=== PATIENT | male | born 1985 | race Caucasian/White ===

== ENCOUNTER 2017-10-14 13:08 | Emergency (ER) | payer SELFPAY ==
[2017-10-14 13:21] VITALS: BP 101/57; PULSE 92; RESP 18; TEMP 98; O2SAT 100
--- NOTE | 2017-10-14 14:31 | ED PDOC ---
Lower Extremity Pain/Injury Time Seen by Provider: 10/14/17 13:22 Chief Complaint (Nursing): Lower Extremity Problem/Injury Chief Complaint (Provider): Lower Extremity Injury History Per: Patient History/Exam Limitations: no limitations Onset/Duration Of Symptoms: Mins ([employer]) Current Symptoms Are (Timing): Better Additional Complaint(s): 32 year old male presents to ED with complaints of a left knee injury and has no relevant past medical history. States that his left knee was displaced laterally while moving furniture. Denies hitting anything against his knee or having a history of prior knee injuries. Denies radiation of pain up his left leg. Patient states he sat down on the EMS stretcher and the knee went back in place by itself. PCP: Non [facility] - Knee Description Of Injury: Other (Dislocated left knee) Past Medical History Reviewed: Historical Data, Nursing Documentation, Vital Signs Vital Signs: Last Vital Signs Temp 98 F 10/14/17 13:17 Pulse 92 H 10/14/17 13:17 Resp 18 10/14/17 13:17 BP 101/57 L 10/14/17 13:17 Pulse Ox 100 10/14/17 13:17 - Medical History PMH: No Chronic Diseases - Family History Family History: States: No Known Family Hx - Living Arrangements Living Arrangements: With Family - Home Medications Home Medications: Ambulatory Orders Medication Instructions Recorded Naproxen [Naprosyn] 500 mg PO BID PRN #10 tab 10/14/17 - Allergies Allergies/Adverse Reactions: Allergies Allergy/AdvReac Type Severity Reaction Status Date / Time No Known Allergies Allergy Verified 10/14/17 13:20 Wells Criteria for PE - Wells Criteria for Pulmonary Embolism Clinical Signs and Symptoms of DVT: No P.E is #1 Diagnosis, or Equally Likely: No Heart Rate >100: No Immobilization at least 3 days;Surgery previous 4 weeks: No Previous, objectively diagnosed PE or DVT: No Hemoptysis: No Total Score: 0 Review of Systems ROS Statement: Except As Marked, All Systems Reviewed And Found Negative Musculoskeletal: Positive for: Leg Pain (left knee pain) Physical Exam - Reviewed Nursing Documentation Reviewed: Yes Vital Signs Reviewed: Yes - Physical Exam Appears: Positive for: Non-toxic, No Acute Distress Skin: Positive for: Normal Color, Warm, Dry Respiratory: Negative for: Respiratory Distress Pulses-Dorsalis Pedis (L): 2+ Pulses-Dorsalis Pedis (R): 2+ Extremity: Positive for: Tenderness (mild tenderness to left knee). Negative for: Deformity, Other ((-) joint laxity) Neurologic/Psych: Positive for: Alert, Oriented. Negative for: Motor/Sensory Deficits - ECG O2 Sat by Pulse Oximetry: 100 (RA) Pulse Ox Interpretation: Normal - Radiology X-Ray: Interpreted by Me (L knee xray) X-Ray Interpretation: No Acute Disease - Progress ED Course And Treament: Knee immobilized in orozco dressing with immobilizer. Crutches provided. Medical Decision Making Medical Decision Makin Initial impression: knee injury Initial plan: * XR KNEE LEFT * Toradol 30mg IM * Re-eval Scribe Attestation: Documented by Carolyn Matos, acting as a scribe for Erasto Sim PA-C. Provider Scribe Attestation: All medical record entries made by the Scribe were at my direction and personally dictated by me. I have reviewed the chart and agree that the record accurately reflects my personal performance of the history, physical exam, medical decision making, and the department course for this patient. I have also personally directed, reviewed, and agree with the discharge instructions and disposition. Disposition - Clinical Impression Clinical Impression: Knee injury - Patient ED Disposition Is Patient to be Admitted: No - Disposition Referrals: Dre Harris MD [Staff Provider] - Disposition: Routine/Home Disposition Time: 14:43 Condition: STABLE Prescriptions: Naproxen [Naprosyn] 500 mg PO BID PRN #10 tab PRN Reason: Pain Instructions: Knee Sprain (ED), Knee Immobilizer (ED), Crutch Instructions (ED) Forms: [employer] (K[place]akh) Print Language: HEBREW
--- NOTE | 2017-10-14 15:16 | RAD ---
PROCEDURE: Left Knee Radiographs. HISTORY: Pain. COMPARISON: None. FINDINGS: BONES: Normal. No fracture. JOINTS: Normal. No osteoarthritis. JOINT EFFUSION: Suspect trace joint effusion OTHER FINDINGS: None. IMPRESSION: No evidence of acute displaced fracture nor dislocation. Suspect trace joint effusion.
== END 2017-10-14 15:25 | disposition home or self-care (01) ==
LOC: H.ER 13:08
DX: S89.92XA Unspecified injury of left lower leg, initial encounter (principal); X50.9XXA Other and unspecified overexertion or strenuous movements or postures, initial encounter; Y92.89 Other specified places as the place of occurrence of the external cause
CPT/HCPCS: 29530; 73562; 96372; 99281; J1885